=== PATIENT | male | born 1970 | race African-American/Black ===

== ENCOUNTER 2017-07-14 20:42 | Observation (INO) | payer MEDICAID, OTHER ==
[~2017-07-14] VITALS: Ht 177.8 cm; Wt 77.8 kg
[~2017-07-14 20:42] MED LIST: ACYC-113 PO; BUSP10TA PO; BUSP15TA PO; LITH300C PO; OLAN10TA9 PO; OLAN20TA3 PO
[2017-07-14 21:33] LABS: AMPHETAMINE SCREEN, URINE Positive (Negative); BARBITURATE SCREEN, URINE Negative (Negative); BENZODIAZEPINE SCREEN, URINE Negative (Negative); CANNABINOID SCREEN, URINE Positive (Negative); COCAINE SCREEN, URINE Negative (Negative); METHADONE SCREEN, URINE Negative (Negative); OPIATE SCREEN, URINE Negative (Negative)
[2017-07-14 22:01] LABS: BASOPHILS # (AUTO) 0.03 x10^3/uL (0-0.1); BASOPHILS % (AUTO) 0 % (0-1); EOSINOPHILS # (AUTO) 0.01 x10^3/uL (0-0.4); EOSINOPHILS % (AUTO) 0 % (1-7); LYMPHOCYTES # (AUTO) 1.66 x10^3/uL (1-3.4); LYMPHOCYTES % (AUTO) 13 % (22-44); MD NO; MEAN CORPUSCULAR HEMOGLOBIN 26.8 pg (27.5-34.5); MEAN CORPUSCULAR HGB CONC 32.7 g/dL (33.2-36.2); MEAN PLATELET VOLUME 9.5 fL (7.4-10.4); MONOCYTES % (AUTO) 3 % (2-9); NEUTROPHILS % (AUTO) 84 % (42-75); PLATELET COUNT 363 x10^3/uL (130-400); RED CELL DISTRIBUTION WIDTH 16.5 % (9.4-14.8)
[2017-07-14 22:09] LABS: ALBUMIN 4.4 g/dL (3.4-5.0); ANION GAP 9 mmol/L (5-15); CHLORIDE 104 mmol/L (98-107); SALICYLATE LEVEL 3.3 mg/dL (2.8-20.0)
[2017-07-14 22:12] LABS: ALANINE AMINOTRANSFERASE 27 U/L (12-78); ALKALINE PHOSPHATASE 79 U/L (45-117); BILIRUBIN,TOTAL 0.7 mg/dL (0.2-1.0); CREATININE 1.38 mg/dL (0.7-1.3); TOTAL PROTEIN 8.8 g/dL (6.4-8.2)
[2017-07-14 22:13] LABS: ACETAMINOPHEN < 2 mcg/mL (10-30)
[2017-07-14] MEDS ORDERED: LORazepam 1MG TABLET ONE (23:54)
[2017-07-14] MEDS ORDERED: METOPROLOL TARTRATE 50 MG TABLET ONE (23:54)
[2017-07-15] MEDS ORDERED: METOPROLOL TARTRATE 50 MG TABLET PO ONE
[2017-07-15] MEDS ORDERED: LORazepam 1MG TABLET PO ONE
[2017-07-15] MEDS ORDERED: ZIPRASIDONE 20 MG INJ IM ONE ×2 (01:00→01:15)
[2017-07-15] MEDS ORDERED: ACETAMINOPHEN 325 MG TABLET PO PRN (02:00)
[2017-07-15] MEDS ORDERED: DOCUSATE 100 MG CAPSULE PO PRN (02:00)
[2017-07-15] MEDS: BUSPIRONE 5 MG TABLET PO SCH ×4 (02:00→20:30)
[2017-07-15] MEDS ORDERED: ONDANSETRON ODT 4 MG PO PRN (02:00)
[2017-07-15] MEDS ORDERED: POLYETHYLENE GLYCOL 17 GM PACKET PO PRN (02:00)
[2017-07-15] MEDS: OLANZAPINE 10 MG TABLET PO SCH ×2 (02:00→20:30)
[2017-07-15 02:09] LABS: FREE T4 (FREE THYROXINE) 0.91 ng/dL (0.76-1.46); THYROID STIMULATING HORMONE 1.82 mIU/L (0.358-3.740)
[2017-07-15 04:49] VITALS: BP 111/84
[2017-07-15 05:24] LABS: MICROSCOPIC AUTO
[2017-07-15 05:27] LABS: CULTURE INDICATED? NO
[2017-07-15 07:50] VITALS: BP 110/77
[2017-07-15] MEDS: NICOTINE 7 MG/24 HR PATCH.TD24 TD SCH (12:53)
[2017-07-15] MEDS: NEOSPORIN OINT, 15GM TP SCH ×3 (14:00→20:31)
[2017-07-15 19:25] VITALS: BP 104/85
[2017-07-16 07:49] VITALS: BP 109/69
[2017-07-16] MEDS: BUSPIRONE 5 MG TABLET PO SCH ×3 (08:19→20:38)
[2017-07-16] MEDS: NEOSPORIN OINT, 15GM TP SCH ×3 (08:20→20:40)
[2017-07-16] MEDS: NICOTINE 7 MG/24 HR PATCH.TD24 TD SCH (11:26)
[2017-07-16 19:31] VITALS: BP 101/68
[2017-07-16] MEDS: OLANZAPINE 10 MG TABLET PO SCH (20:39)
[2017-07-17 07:42] VITALS: BP 109/70
[2017-07-17] MEDS: BUSPIRONE 5 MG TABLET PO SCH ×3 (08:41→20:50)
[2017-07-17] MEDS: NEOSPORIN OINT, 15GM TP SCH ×3 (08:41→20:51)
[2017-07-17] MEDS: NICOTINE 7 MG/24 HR PATCH.TD24 TD SCH (13:00)
[2017-07-17 19:43] VITALS: BP 111/59
[2017-07-17] MEDS: OLANZAPINE 10 MG TABLET PO SCH (20:48)
[2017-07-18] MEDS: BUSPIRONE 5 MG TABLET PO SCH ×3 (08:51→20:47)
[2017-07-18] MEDS: NEOSPORIN OINT, 15GM TP SCH ×3 (08:56→20:49)
[2017-07-18 09:26] VITALS: BP 102/64
[2017-07-18 12:36] LABS: BASOPHILS # (AUTO) 0.05 x10^3/uL (0-0.1); BASOPHILS % (AUTO) 1 % (0-1); EOSINOPHILS % (AUTO) 4 % (1-7); LYMPHOCYTES # (AUTO) 1.76 x10^3/uL (1-3.4); LYMPHOCYTES % (AUTO) 31 % (22-44); MD NO; MEAN CORPUSCULAR HEMOGLOBIN 26.6 pg (27.5-34.5); MEAN CORPUSCULAR HGB CONC 32.1 g/dL (33.2-36.2); MEAN CORPUSCULAR VOLUME 82.9 fL (81-97); MEAN PLATELET VOLUME 9.5 fL (7.4-10.4); MONOCYTES # (AUTO) 0.29 x10^3/uL (0.2-0.8); MONOCYTES % (AUTO) 5 % (2-9); NEUTROPHILS # (AUTO) 3.45 x10^3/uL (1.8-6.8); NEUTROPHILS % (AUTO) 60 % (42-75); PLATELET COUNT 342 x10^3/uL (130-400); RED BLOOD COUNT 5.93 x10^6/uL (4.38-5.82); RED CELL DISTRIBUTION WIDTH 16.4 % (9.4-14.8)
[2017-07-18] MEDS: NICOTINE 7 MG/24 HR PATCH.TD24 TD SCH (13:00)
[2017-07-18 19:28] VITALS: BP 105/68
[2017-07-18] MEDS: OLANZAPINE 10 MG TABLET PO SCH (20:44)
[2017-07-19 07:37] VITALS: BP 122/88
[2017-07-19] MEDS: BUSPIRONE 5 MG TABLET PO SCH (08:34)
[2017-07-19] MEDS: NEOSPORIN OINT, 15GM TP SCH (08:34)
[2017-07-19] MEDS: NICOTINE 7 MG/24 HR PATCH.TD24 TD SCH (13:00)
== END 2017-07-19 14:42 ==
LOC: ED 22:24 → EDIP 07-15 01:20 → 3E 07-15 04:45
PROVIDERS: ADMIT Internal Medicine; ATTEND Internal Medicine
DX: R45.851 Suicidal ideations (principal); F20.9 Schizophrenia, unspecified; F31.9 Bipolar disorder, unspecified; F12.10 Cannabis abuse, uncomplicated; F15.10 Other stimulant abuse, uncomplicated; N17.0 Acute kidney failure with tubular necrosis; I10 Essential (primary) hypertension; F41.1 Generalized anxiety disorder; Z87.891 Personal history of nicotine dependence
CPT/HCPCS: 36415; 71045; 80053; 80307; 80329; 81001; 84439; 84443; 85025; 93005; 96372; 99285; G0378; J3486; G0480

== ENCOUNTER 2017-08-08 05:50 | Emergency (ER) | payer MEDICAID ==
[~2017-08-08] VITALS: Ht 177.8 cm; Wt 79.2 kg
[2017-08-08 05:51] VITALS: BP 133/95
[2017-08-08] MEDS ORDERED: LORazepam 1MG TABLET ONE (06:22)
[2017-08-08 06:30] LABS: AMPHETAMINE SCREEN, URINE Positive (Negative); BARBITURATE SCREEN, URINE Negative (Negative); BENZODIAZEPINE SCREEN, URINE Negative (Negative); CANNABINOID SCREEN, URINE Positive (Negative); COCAINE SCREEN, URINE Negative (Negative); METHADONE SCREEN, URINE Negative (Negative); OPIATE SCREEN, URINE Negative (Negative)
[2017-08-08] MEDS ORDERED: LORazepam 1MG TABLET PO ONE (06:30)
[2017-08-08 07:04] LABS: ALANINE AMINOTRANSFERASE 28 U/L (12-78); ALBUMIN 3.5 g/dL (3.4-5.0); ANION GAP 7 mmol/L (5-15); CALCIUM 8.5 mg/dL (8.5-10.1); CHLORIDE 105 mmol/L (98-107); CREATININE 1.21 mg/dL (0.7-1.3); SALICYLATE LEVEL 1.9 mg/dL (2.8-20.0)
[2017-08-08 07:06] LABS: ALKALINE PHOSPHATASE 88 U/L (45-117); BILIRUBIN,TOTAL 0.5 mg/dL (0.2-1.0); TOTAL PROTEIN 7.5 g/dL (6.4-8.2)
[2017-08-08 07:07] LABS: MEAN CORPUSCULAR HEMOGLOBIN 26.6 pg (27.5-34.5); MEAN CORPUSCULAR HGB CONC 32.6 g/dL (33.2-36.2); MEAN CORPUSCULAR VOLUME 81.7 fL (81-97); RED BLOOD COUNT 5.37 x10^6/uL (4.38-5.82); RED CELL DISTRIBUTION WIDTH 16.6 % (9.4-14.8)
[2017-08-08 07:08] LABS: MEAN PLATELET VOLUME 8.7 fL (7.4-10.4); PLATELET COUNT 374 x10^3/uL (130-400)
[2017-08-08 07:10] LABS: BASOPHILS # (AUTO) 0.06 x10^3/uL (0-0.1); BASOPHILS % (AUTO) 1 % (0-1); EOSINOPHILS # (AUTO) 0.15 x10^3/uL (0-0.4); EOSINOPHILS % (AUTO) 3 % (1-7); LYMPHOCYTES # (AUTO) 1.71 x10^3/uL (1-3.4); LYMPHOCYTES % (AUTO) 29 % (22-44); MD SCAN; MONOCYTES # (AUTO) 0.46 x10^3/uL (0.2-0.8); MONOCYTES % (AUTO) 8 % (2-9); NEUTROPHILS # (AUTO) 3.61 x10^3/uL (1.8-6.8); NEUTROPHILS % (AUTO) 60 % (42-75)
[2017-08-08 07:11] LABS: ACETAMINOPHEN < 2 mcg/mL (10-30)
[2017-08-08] MEDS ORDERED: OLANZAPINE 5 MG TABLET PO ONE (09:00)
[2017-08-08] MEDS ORDERED: OLANZAPINE 5 MG TABLET ONE (11:10)
== END 2017-08-08 11:18 | disposition home or self-care (01) ==
LOC: ED 10:18
DX: F20.9 Schizophrenia, unspecified (principal); I10 Essential (primary) hypertension; F31.9 Bipolar disorder, unspecified; F17.200 Nicotine dependence, unspecified, uncomplicated; Z79.899 Other long term (current) drug therapy
CPT/HCPCS: 36415; 80053; 80307; 80329; 85025; 99284; G0480